=== PATIENT | female | born 1990 | race Caucasian/White ===

== ENCOUNTER 2025-03-11 18:50 | Emergency (ER) | payer OTHER ==
[~2025-03-11] VITALS: Ht 170.2 cm; Wt 150.0 kg
[2025-03-11 20:40] VITALS: BP 132/79
== END 2025-03-11 21:00 | disposition home or self-care (01) ==
LOC: ED 18:50
DX: R55 Syncope and collapse (principal); Z88.0 Allergy status to penicillin
CPT/HCPCS: 36415; 84703; 99283